=== PATIENT | female | born 1980 | race Caucasian/White ===

== ENCOUNTER → 2023-10-25 | Outpatient (CLI) | payer OTHER, SELFPAY ==
--- NOTE | 2023-10-25 12:06 | US_ITS ---
STUDY: THYROID ULTRASOUND REASON FOR EXAM: Female, 43 years old. HYPO/UNSYMMETRICAL THYROID TECHNIQUE: Ultrasound evaluation of the thyroid was performed with real-time and static joshi-scale imaging. COMPARISON: None. FINDINGS: RIGHT LOBE: The right lobe of the thyroid gland is enlarged and measures 5.4 cm x 1.5 cm x 1.3 cm. There is a homogeneous echotexture. There are no demonstrated solid, cystic or complex lesions. LEFT LOBE: The left lobe of the thyroid gland is enlarged and measures 5.7 cm x 1.7 cm x 1.4 cm. There is a homogeneous echotexture. 2, subcentimeter cystic nodules are seen in the lower pole of the left lobe of the thyroid. ISTHMUS: The isthmus measures 1.3 mm. The regional lymph nodes are normal. US/Thyroid IMPRESSION: Subcentimeters cystic nodule seen in the lower pole of the left lobe of the thyroid. Electronically Signed: Darian Weaver MD at 15:14 EST ,
== END | disposition home or self-care (01) ==
LOC: US 12:05
PROVIDERS: PCP Family Medicine; Referring Provider Family Medicine; Visit Provider Family Medicine
DX: E07.9 Disorder of thyroid, unspecified (principal)
CPT/HCPCS: 76536

== ENCOUNTER → 2024-01-22 | Outpatient (CLI) | payer OTHER, SELFPAY ==
[2024-01-22 17:05] LABS: Thyroid Stim Hormone (TSH) 0.41 uIU/mL (0.358-3.74)
== END | disposition home or self-care (01) ==
LOC: LAB 15:34
PROVIDERS: PCP Family Medicine; Referring Provider Internal Medicine Endocrinology, Diabetes & Metabolism; Visit Provider Internal Medicine Endocrinology, Diabetes & Metabolism
DX: E04.2 Nontoxic multinodular goiter (principal); E03.8 Other specified hypothyroidism
CPT/HCPCS: 36415; 84443

== ENCOUNTER → 2024-06-07 | Outpatient (CLI) | payer OTHER, SELFPAY ==
--- NOTE | 2024-06-07 10:42 | MRI_ITS ---
STUDY: MRI BRAIN WITH AND WITHOUT CONTRAST REASON FOR EXAM: Female, 44 years old. DIZZINESS AND TINNITUS BILAT EARS TECHNIQUE: Standardized multiplanar fat and water weighted pulse sequences were obtained. IV 14ML CLARISCAN was administered for the contrast portion of the examination. COMPARISON: None. FINDINGS: Normal size of the ventricles and extra-axial spaces for the patient''s age. There are multiple white matter hyperintensities, distributed throughout the deep white matter tracts of the cerebral hemispheres, consistent with moderate chronic white matter ischemic or demyelinating changes. There is no evidence for recent intracranial ischemia or other cause of cytotoxic edema on diffusion weighted imaging (DWI). Normal bilateral basal ganglia. Normal thalami. There is no extra-axial fluid accumulation. Normal flow voids within the major intracranial circulation suggesting patency by spin echo criteria. Normal venous enhancement. There is no enhancing intra-axial or extra-axial abnormality. Normal sella turcica, pituitary gland, infundibular stalk, optic chiasm and hypothalamus. Normal tectal plate and pineal gland. Normal midbrain, mariela and medulla. Normal cerebellum. Normal basal cisterns. Normal bilateral temporal bones. Normal bilateral internal auditory canals. No demonstrated orbital abnormality, within the constraints of a routine brain study. Normal visualized paranasal sinuses. Normal calvarium and skull base. Normal visualized soft tissue structures. Normal visualized upper cervical spine. MRI/Brain W/WO Contrast IMPRESSION: No acute intracranial abnormality. Moderate white matter ischemic or demyelinating change. Electronically Signed: Elliott Rob MD at 13:11 EDT ,
== END | disposition home or self-care (01) ==
PROVIDERS: PCP Family Medicine; Referring Provider Otolaryngology; Visit Provider Otolaryngology
DX: R42 Dizziness and giddiness (principal); H93.13 Tinnitus, bilateral
CPT/HCPCS: 70553; A9575